=== PATIENT | male | born 1960 | race African-American/Black ===

== ENCOUNTER 2017-09-27 23:06 | Emergency (ER) | payer MEDICAID ==
[~2017-09-27] VITALS: Ht 177.8 cm; Wt 76.4 kg
[2017-09-27 23:13] VITALS: Ht 177.8 cm; Wt 76.4 kg
[2017-09-27] MEDS ORDERED: SEROQUEL25 MG (23:14)
[2017-09-27] MEDS ORDERED: XANAX0.25 MG (23:14)
[2017-09-27] MEDS ORDERED: DEPAKOTE125 MG (23:14)
[2017-09-27] MEDS ORDERED: LANTUS INSULIN10 ML SC (23:15)
[2017-09-27] MEDS ORDERED: GABAPENTIN100 MG (23:15)
[2017-09-28] MEDS ORDERED: ROBAXIN-750750 MG PO (01:10)
[2017-09-28] MEDS ORDERED: ATARAX 25 MG TA25 MG PO (01:10)
[2017-09-28] MEDS ORDERED: VOLTAREN75 MG PO (01:10)
[2017-09-28 01:33] VITALS: BP 122/89
== END 2017-09-28 01:33 | disposition home or self-care (01) ==
LOC: D.ER 23:06
DX: G89.29 Other chronic pain (principal); R21 Rash and other nonspecific skin eruption; E11.9 Type 2 diabetes mellitus without complications; F17.200 Nicotine dependence, unspecified, uncomplicated

== ENCOUNTER 2018-09-06 12:47 | Emergency (ER) | payer MEDICAID ==
[~2018-09-06] VITALS: Ht 177.8 cm; Wt 77.3 kg
[~2018-09-06 12:47] MED LIST: ATARAX 25 MG TA25 MG PO; DEPAKOTE125 MG; GABAPENTIN100 MG; LANTUS INSULIN10 ML SC; ROBAXIN-750750 MG PO; SEROQUEL25 MG; VOLTAREN75 MG PO; XANAX0.25 MG
[2018-09-06 12:50] VITALS: Ht 177.8 cm; Wt 77.3 kg
[2018-09-06] MEDS ORDERED: NEURONTIN 300300 MG PO (12:57)
[2018-09-06] MEDS ORDERED: DILANTIN100 MG PO (12:57)
[2018-09-06] MEDS ORDERED: SINGULAIR10 MG PO (12:57)
[2018-09-06] MEDS ORDERED: RANITIDINE HCL150 M1 PO (12:58)
[2018-09-06] MEDS ORDERED: SEROQUEL400 MG PO (12:58)
[2018-09-06] MEDS ORDERED: MOBIC7.5 MG PO (12:58)
[2018-09-06] MEDS ORDERED: XANAX2 MG PO (12:58)
[2018-09-06] MEDS ORDERED: ZESTRIL20 MG PO (12:58)
[2018-09-06] MEDS ORDERED: SYMBICORT 16010.2 GM INH (12:59)
[2018-09-06] MEDS ORDERED: FLOVENT HFA 11012 GM (12:59)
[2018-09-06] MEDS ORDERED: ZOCOR20 MG PO (12:59)
[2018-09-06 13:16] LABS: BASOPHILS 0.4 % (0-2); EOSINOPHILS 2.6 % (0-7); HEMATOCRIT 40.9 % (42.0-54.0); HEMOGLOBIN 14.2 g/dL (13.5-17.5); IMMATURE GRANULOCYTES 0.5 % (0-5); LYMPHOCYTES 26.2 % (15-50); MCH 30.1 pg (26.0-34.0); MCHC 34.7 g/dL (31.0-37.0); MCV 86.8 fL (80.0-100.0); MEAN PLATELET VOLUME 9.2 fL (7.4-10.4); MONOCYTES 10.2 % (2-11); NEUTROPHILS 60.1 % (40-80); PLATELET COUNT 245 10x3/uL (130-400); RBC 4.71 10x6/uL (4.20-6.10); RDW 13.9 % (11.5-14.5); WBC 12.6 10x3/uL (4.8-10.8)
[2018-09-06 13:31] LABS: ALBUMIN 3.3 g/dL (3.4-5.0); ANION GAP 11.3 mmol/L (8-16); BILIRUBIN - TOTAL 0.31 mg/dL (0.2-1.3); CALCIUM 9.4 mg/dL (8.5-10.1); CARBON DIOXIDE 28.7 mmol/L (21.0-32.0); CREATININE - SERUM 1.7 mg/dL (0.6-1.3); PROTEIN - SERUM 7.6 g/dL (6.4-8.2)
[2018-09-06 13:33] LABS: APPEARANCE CLEAR (CLEAR); BILIRUBIN NEGATIVE (NEGATIVE); COLOR STRAW (YELLOW); GLUCOSE NEGATIVE (NEGATIVE); KETONE NEGATIVE (NEGATIVE); NITRITE NEGATIVE (NEGATIVE); PROTEIN NEGATIVE (NEGATIVE); UROBILINOGEN NORMAL (NORMAL)
[2018-09-06] MEDS ORDERED: LEVSIN/ANASP0.125 MG PO (16:34)
[2018-09-06] MEDS ORDERED: TYLENOL W/CODEI1 TAB PO (16:53)
[2018-09-06] MEDS ORDERED: ZOFRAN ODT4 MG/UDTAB PO (16:53)
[2018-09-06 17:10] VITALS: BP 121/94
== END 2018-09-06 17:10 | disposition home or self-care (01) ==
LOC: D.ER 12:47
PROVIDERS: Emergency Medicine
DX: F45.8 Other somatoform disorders (principal); E86.0 Dehydration; R13.10 Dysphagia, unspecified

== ENCOUNTER 2018-12-11 09:12 | Day surgery (SDC) | payer MEDICAID ==
[~2018-12-11] VITALS: Ht 175.3 cm; Wt 85.3 kg
[~2018-12-11 09:12] MED LIST changes: +DILANTIN100 MG PO; +FLOVENT HFA 11012 GM; +HYDROCODON-ACE1 EA10 PO; +INSULIN SYRG MIS 1ML SQ; +LEVSIN/ANASP0.125 MG PO; +MOBIC7.5 MG PO; +NEURONTIN 300300 MG PO; +RANITIDINE HCL150 M1 PO; +SEROQUEL400 MG PO; +SINGULAIR10 MG PO; +SYMBICORT 16010.2 GM INH; +TYLENOL W/CODEI1 TAB PO; +XANAX2 MG PO; +ZESTRIL20 MG PO; +ZOCOR20 MG PO; +ZOFRAN ODT4 MG/UDTAB PO
[2018-12-11 09:36] LABS: HEMATOCRIT 39.7 % (42.0-54.0); HEMOGLOBIN 13.4 g/dL (13.5-17.5); MCH 29.9 pg (26.0-34.0); MCHC 33.8 g/dL (31.0-37.0); MCV 88.6 fL (80.0-100.0); MEAN PLATELET VOLUME 9.5 fL (7.4-10.4); RBC 4.48 10x6/uL (4.20-6.10); RDW 14.9 % (11.5-14.5); WBC 16.1 10x3/uL (4.8-10.8)
[2018-12-11 09:43] LABS: ANION GAP 12.7 mmol/L (8-16); CALCIUM 9.2 mg/dL (8.5-10.1); CARBON DIOXIDE 27.4 mmol/L (21.0-32.0); CREATININE - SERUM 1.3 mg/dL (0.6-1.3); POTASSIUM - SERUM 4.1 mmol/L (3.5-5.1)
[2018-12-11 10:08] VITALS: BP 125/90; Ht 175.3 cm; Wt 85.3 kg
[2018-12-11] MEDS ORDERED: PERCOCET 5-3251 TAB PO (13:38)
[2018-12-11] MEDS ORDERED: PROMETHAZINE W473 ML PO (13:39)
--- NOTE | 2018-12-11 14:27 | OP ---
PATIENT NAME: LAUREN SOTO MEDICAL RECORD: [id number] :64 LOCATION:[facility] ADMISSION DATE: SURGEON: DALE GARDNER DO DATE OF OPERATION: 12/11/2018 PROCEDURE PERFORMED: Right fifth metatarsal closed reduction percutaneous pinning. PREOPERATIVE DIAGNOSIS: Right fifth metatarsal zone 3 fracture or Traylor fracture, displaced. POSTOPERATIVE DIAGNOSIS: Right fifth metatarsal zone 3 fracture or Traylor fracture, displaced. INDICATIONS: Mr. Soto is a 58-year-old male who sustained a fracture approximately 2 weeks ago of the fifth metatarsal that had been giving him quite a bit of pain. He was seen in my office, scheduled for surgery last week and he did not show up and he wanted rescheduled for today and I told him that it is fine. He is at risk for injury to the sural nerve, the peroneal tendons, malunion, nonunion, due to this fracture site and it being older. There was no callus formed at the time of surgery. He was aware of those risks as well as blood clots, infection, bleeding, damage to nerves and vessels, need for further surgery, and even . He signed the consent. SURGEON: Dale Gardner DO DESCRIPTION OF PROCEDURE: The patient was taken to the operative suite, laid in supine position, given 2 grams of Ancef. The right lower extremity was prepped and draped in sterile fashion. A timeout was performed and everyone was in agreement with the correct side, site, patient and procedure. He had been sedated and LMA placed prior to this. He was laid in the left lateral decubitus position with the right leg up. After a timeout was performed and everyone was in agreement as to the correct side, site and patient, the incision was marked out and incision with a 10-blade was made. Careful dissection was made down to the fifth metatarsal base. A K-wire was placed into the shaft, confirmed on AP and lateral x-ray and then measured to put a 50 screw, 4.7 Acumed screw. The drill was then used as soft tissue protector to drill through the cortex and through the fracture site. The screw was then inserted and tightened down with hand. He had good reduction of the fracture and some compression of the fracture site. The K-wire was removed at that time. X-rays were taken and the site was irrigated and closed with 4-0 Monocryl in a running stitch. Steri-Strips, Adaptic, 4 x 4, Webril and Michael wrap were then placed on the foot. He was out of boot in his room that he had put on. The patient was then awakened and taken to recovery in stable condition. BLOOD LOSS: Minimal. COMPLICATIONS: None. TRANSINT:[id number] Voice Confirmation ID: [id number] DOCUMENT ID: [id number] OPERATIVE REPORT [id number] LAUREN SOTO,DALE Russo DO at 1427 CC: [id number] DICTATION DATE: 12/11/18 1335 PELLETIZER OPERATOR: 12/11/18 1423 [facility] [address] [place] [address]
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
== END 2018-12-11 16:25 | disposition home or self-care (01) ==
LOC: D.OPS 09:12 → D.PAN 11:45 → D.OPS 12:00
PROVIDERS: Anesthesiology; ATTEND Orthopaedic Surgery
DX: S62.306A Unspecified fracture of fifth metacarpal bone, right hand, initial encounter for closed fracture (principal)

== ENCOUNTER 2019-09-17 08:38 | Day surgery (SDC) | payer MEDICAID ==
[~2019-09-17] VITALS: Ht 175.3 cm; Wt 82.7 kg
[~2019-09-17 08:38] MED LIST changes: +PERCOCET 5-3251 TAB PO; +PROMETHAZINE W473 ML PO
[2019-09-17 09:21] LABS: ANION GAP 12.8 mmol/L (8-16); CALCIUM 8.7 mg/dL (8.5-10.1); CARBON DIOXIDE 24.4 mmol/L (21.0-32.0); CREATININE - SERUM 1.6 mg/dL (0.6-1.3); POTASSIUM - SERUM 4.2 mmol/L (3.5-5.1)
[2019-09-17 09:44] LABS: HEMATOCRIT 38.1 % (42.0-54.0); HEMOGLOBIN 12.1 g/dL (13.5-17.5); MCH 27.1 pg (26.0-34.0); MCHC 31.8 g/dL (31.0-37.0); MCV 85.2 fL (80.0-100.0); MEAN PLATELET VOLUME 9.1 fL (7.4-10.4); RBC 4.47 10x6/uL (4.20-6.10); RDW 18.5 % (11.5-14.5); WBC 14.4 10x3/uL (4.8-10.8)
[2019-09-17 10:05] VITALS: Ht 175.3 cm; Wt 82.7 kg
--- NOTE | 2019-09-17 14:26 | NUR ---
1153 IV DC'D. CATHETER TIP INTACT. NO BLEEDING AT SITE. BANDAID APPLIED. REVIEWED DISCHARGE INSTRUCTIONS WITH PATIENT AND HIS . THEY STATED THE APPOINTMENTS MADE FOR UGI AND GES CONFLICTED WITH OTHER DOCTOR APPOINTMENTS THEY HAVE ON THEIR CALENDAR. THEY WISH TO MAKE THEIR OWN APPOINTMENTS FOR UGI,GES AND FOLLOWUP WITH DR PARDO. INFORMATION WITH PHONE NUMBERS ON DISCHARGE SHEET
--- NOTE | 2019-09-20 11:44 | OP ---
PATIENT NAME: LAUREN SOTO MEDICAL RECORD: [id number] :64 LOCATION:[facility] ADMISSION DATE: SURGEON: DALLAS PARDO DO DATE OF OPERATION: 09/17/2019 PROCEDURE: EGD with biopsies. INDICATIONS FOR PROCEDURE: Dysphagia, epigastric pain, nausea and vomiting. SCOPE: Olympus video gastroscope. MEDICATIONS: Propofol 340 mg IV per anesthesia. ESTIMATED BLOOD LOSS: Minimal. COMPLICATIONS: None. FINDINGS: Informed consent was given. The patient was made comfortable with the above medication. After reaching an adequate level of sedation by slow IV push, the patient was placed on his left side. The endoscope was advanced under direct visualization through the mouth to the duodenal bulb. The upper, middle, and lower thirds of the esophagus appeared normal. Cold forceps biopsies were randomly taken from the midesophagus to rule out the presence of eosinophils. At the GE junction, there was evidence of LA class A reflux-induced esophagitis. The endoscope was advanced beyond the GE junction into the stomach and retroflexed to view the cardia, where a moderate size sliding hiatal hernia was present. There was a moderate amount of retained food and fluid within the stomach itself. The fluid was suctioned out of the stomach as adequately as possible for evaluation of the mucosa of the stomach which had an erythematous and granular appearance. This was consistent with a chronic gastritis. Cold forceps, biopsies were taken from the antrum to submit for histopathology and to rule out the presence of H. pylori. The stomach was extremely J-shaped with a pylorus heading in the opposite direction, which made intubation of the duodenum extremely difficult. A significant amount of time was spent trying to reach the second portion of the duodenum, but this was not possible. There was some erythema and granularity and a small ulceration seen in the duodenum. Appearances were consistent with duodenitis. The endoscope was withdrawn from the patient. The patient tolerated the procedure well and there were no complications. IMPRESSIONS: 1. LA class A reflux-induced esophagitis. 2. Moderate sliding hiatal hernia. 3. Retained food. 4. Gastritis. 5. Duodenitis. PLAN AND RECOMMENDATIONS: 1. Discharge home when recovery parameters are met. 2. Follow up biopsy specimen results. 3. GERD diet and reflux precautions. 4. Continue current medications. 5. Omeprazole 40 mg daily. 6. I will order an upper GI with small bowel follow through to evaluate the duodenum further to make sure there are no anatomical obstructions contributing OPERATIVE REPORT [id number] LAUREN SOTO to the retained food. 7. Gastric emptying scan to evaluate the upper digestive symptoms. Clinically and endoscopically, symptoms fit gastroparesis. 8. Follow up in GI clinic in 6-8 weeks. TRANSINT:[id number] Voice Confirmation ID: [id number] DOCUMENT ID: [id number] DALLAS PARDO DO at 1144 CC: [id number] DICTATION DATE: 09/17/19 1102 PHOTO COLORER: 09/17/[address] [facility] 09/17/19 [facility] [address] [place] [address]
== END 2019-09-17 12:13 | disposition home or self-care (01) ==
LOC: D.OPS 08:38
PROVIDERS: Anesthesiology; ATTEND Internal Medicine Gastroenterology
DX: R13.10 Dysphagia, unspecified (principal); R10.13 Epigastric pain; R11.2 Nausea with vomiting, unspecified; E11.9 Type 2 diabetes mellitus without complications

== ENCOUNTER → 2019-10-19 10:51 | Outpatient (CLI) | payer MEDICAID ==
[2019-09-17 10:05] VITALS: BMI 26.9
== END | disposition home or self-care (01) ==
LOC: D.RAD 09-20 11:00
PROVIDERS: ATTEND Internal Medicine Gastroenterology
DX: R10.9 Unspecified abdominal pain (principal); R11.2 Nausea with vomiting, unspecified

== ENCOUNTER 2019-12-15 14:02 | Day surgery (SDC) | payer MEDICAID ==
[~2019-12-15] VITALS: Ht 175.3 cm; Wt 82.7 kg
--- NOTE | ~2019-12-15 | OP ---
PATIENT NAME: LAUREN SOTO MEDICAL RECORD: [id number] :64 LOCATION:[facility] ADMISSION DATE: SURGEON: DALLAS PARDO DO DATE OF OPERATION: 12/15/2019 PROCEDURE: Colonoscopy. INDICATIONS FOR PROCEDURE: Constipation, hematochezia, metastatic cancer of unknown primary with concerns that this could be a colon cancer. SCOPE: Olympus video pediatric colonoscope. MEDICATIONS: Propofol 300 mg IV per anesthesia. WITHDRAWAL TIME: 14 minutes. ESTIMATED BLOOD LOSS: None. COMPLICATIONS: None. FINDINGS: Informed consent was given. The patient was made comfortable with the above medication. After reaching an adequate level of sedation by slow IV push, the patient was placed in his left side. A digital rectal examination was performed and no rectal lesions were palpated. The endoscope was advanced under direct visualization through the rectum to the cecum, confirmed by the presence of the appendiceal orifice and ileocecal valve. The endoscope was slowly withdrawn and mucosa was carefully examined. The prep quality was good. There were no polyps visualized on today's examination. There were no masses or other abnormalities visualized. There was extensive diverticulosis involving the entire colon with the main focus located in the descending and sigmoid colon. Retroflexion was performed in the rectum with visualization of grade I internal hemorrhoids without bleeding. The endoscope was withdrawn from the patient. The patient tolerated the procedure well and there were no complications. IMPRESSION: 1. Severe diverticulosis without diverticulitis. 2. Grade I internal hemorrhoids, not bleeding. 3. Otherwise, normal colonoscopy to cecum without malignancy identified. PLAN AND RECOMMENDATIONS: 1. Discharge home when recovery parameters are met. 2. High fiber diet. 3. Continue current medications. 4. Continue follow up with other specialties. 5. Repeat colonoscopy in 5 years. TRANSINT:[id number] Voice Confirmation ID: [id number] DOCUMENT ID: [id number] OPERATIVE REPORT [id number] LAUREN SOTODALLAS RAE DO CC: JONEL AUGUSTIN MD [id number] DICTATION DATE: 12/15/19 1558 SHEET METAL ASSEMBLER: 12/16/[address] [facility] 12/15/19 [facility] [address] [place] [address]
[~2019-12-15 14:02] MED LIST changes: -INSULIN SYRG MIS 1ML SQ; +LANTUS SQ
[2019-12-15 14:32] LABS: BASOPHILS 0.5 % (0-2); EOSINOPHILS 1.9 % (0-7); HEMATOCRIT 35.9 % (42.0-54.0); IMMATURE GRANULOCYTES 0.3 % (0-5); LYMPHOCYTES 24.2 % (15-50); MCH 27.1 pg (26.0-34.0); MCHC 33.4 g/dL (31.0-37.0); MEAN PLATELET VOLUME 8.2 fL (7.4-10.4); MONOCYTES 8.2 % (2-11); NEUTROPHILS 64.9 % (40-80); PLATELET COUNT 363 10x3/uL (130-400); RBC 4.43 10x6/uL (4.20-6.10); RDW 14.7 % (11.5-14.5); WBC 10.5 10x3/uL (4.8-10.8)
[2019-12-15 14:40] LABS: ANION GAP 11.5 mmol/L (8-16); CALCIUM 9.6 mg/dL (8.5-10.1); CARBON DIOXIDE 24.3 mmol/L (21.0-32.0); CREATININE - SERUM 1.3 mg/dL (0.6-1.3); POTASSIUM - SERUM 3.8 mmol/L (3.5-5.1)
[2019-12-15] MEDS ORDERED: BACLOFEN10 MG PO (14:43)
[2019-12-15] MEDS ORDERED: HYDROCODON-ACE1 EA10 PO (14:43)
[2019-12-15 14:58] VITALS: BP 120/82; Ht 175.3 cm; Wt 82.7 kg
--- NOTE | 2019-12-15 16:25 | NUR ---
1610 SWEET TEA AND JELLO SERVED. 1615 DR. EDVIN SEVERINO.
== END 2019-12-15 16:50 | disposition home or self-care (01) ==
LOC: D.OPS 14:02
PROVIDERS: Anesthesiology; ATTEND Internal Medicine Gastroenterology
DX: K59.00 Constipation, unspecified (principal); K92.1 Melena; K57.30 Diverticulosis of large intestine without perforation or abscess without bleeding; K64.0 First degree hemorrhoids; R10.13 Epigastric pain; R13.10 Dysphagia, unspecified